=== PATIENT | female | born 1970 ===

== ENCOUNTER 2018-06-25 18:31 | Emergency (ER) | payer BC ==
--- NOTE | 2018-06-25 18:48 | UC ---
General HPI - HPI Summary HPI Summary: This is pinky Yanez documenting for attending [facility] MD Kush. Pt is a 48 y/o F c/o N/V/D onset earlier this AM. Assoc. Sx: N/V/D (10x), abd pain described as generalized and cramping. Denies: fever, melena or any blood in vomitus. Denies any cough,chest pain or shortness of breath. She said that she is the 3rd person in the house to contract this virus. Lasting about 1 to 2 days. She toof zofran 8 mg today at 3 -m but sisnce she has vomitted 17 times since morning , it did not stay in .Also has continous watery diarrhea, no blood . Took imodium . twice. Has a h/o appendectomy as a cild and ovarian cystectomy 3 years ago. She notes that she has had contact at [facility]. Family is visiting from [place] and returns on flight home tomorrow evening. - History of Current Complaint Chief Complaint: UCGI Stated Complaint: VOMITING Time Seen by Provider: 06/25/18 18:33 Hx Obtained From: Patient Onset/Duration: Sudden Onset, Lasting Hours, Still Present Timing: Constant Current Severity: Severe Pain Intensity: 8 Associated Signs & Symptoms: Positive: Abdominal Pain - cramping, Diarrhea, Nausea, Vomiting - Allergy/Home Medications Allergies/Adverse Reactions: Allergies Allergy/AdvReac Type Severity Reaction Status Date / Time Penicillins Allergy Rash Verified 06/25/18 18:36 tetracycline Allergy Anaphylatic Verified 06/25/18 18:36 Shock Home Medications: Home Medications Bismuth Subsalicylate [Pepto-Bismol] 262 mg PO 06/25/18 [History] Levothyroxine TAB* [Synthroid TAB*] 112 mcg PO 0800 06/25/18 [History Confirmed 06/25/18] Liothyronine TAB* [Cytomel TAB*] 5 mcg PO DAILY 06/25/18 [History Confirmed ] Loperamide HCl [Imodium A-D] 2 mg PO 06/25/18 [History] Ondansetron HCl [Zofran 4 MG TAB] 8 mg PO 06/25/18 [History] PMH/Surg Hx/FS Hx/Imm Hx Other Endocrine History: negative Other Cardiovascular History: Negative: CAD, HTN Other Respiratory History: negative Other GI/ History: negative Other Neurological History: Start taking . It has been prescribed to the pharmacy . Other Psychological History: Start taking . It has been prescribed to the pharmacy . - Surgical History Surgical History: Yes Surgery Procedure, Year, and Place: appy, rt oopherectomy - Family History Known Family History: Positive: Unknown - Social History Occupation: Unemployed Lives: With Family Alcohol Use: Occasionally Substance Use Type: None Smoking Status (MU): Never Smoked Tobacco Review of Systems Constitutional: Negative - fever Skin: Negative Eyes: Negative ENT: Negative Respiratory: Negative Cardiovascular: Negative Gastrointestinal: Abdominal Pain - cramping, Vomiting, Diarrhea, Nausea Genitourinary: Negative - melena, Motor: Negative Musculoskeletal: Negative Neurological: Negative Psychological: Negative Is Patient Immunocompromised?: No All Other Systems Reviewed And Are Negative: Yes Physical Exam - Summary Physical Exam Summary: Appearance: Well-Appearing, No Pain Distress, Well-Nourished Eyes: conjunctiva clear, no discharge ENT: Hearing grossly normal, no muffled/hoarse voice. Neck: Normal, Supple Respiratory/Lung Sounds: Lungs clear, Normal breath sounds, No respiratory distress, No accessory muscle use Cardiovascular: RRR, No murmur Abdomen: Generalized abdominal tenderness, Soft, no guarding, no rigidity, not distended.No organomegaly. murphys sign negative. Bowel Sounds: Present and hyper Musculoskeletal: Normal Neurological: Alert, muscle tone normal Psychiatric:Normal, age appropriate behavior Skin: Normal, Warm, Dry, Normal color Triage Information Reviewed: Yes Vital Signs: Initial Vital Signs Temp 98.4 F 06/25/18 18:33 Pulse 76 06/25/18 18:33 Resp 18 06/25/18 18:33 BP 132/76 06/25/18 18:33 Pulse Ox 99 06/25/18 18:33 Vital Signs Reviewed: Yes Course/Dx - Course Course Of Treatment: During her visit today, she was givena 1 Lt bolus of NS and 4 mg zofran IV with significant improvement in her symptoms, she had no more episodes of vomiting. We discussed the findings that viral gastroenteritis likely the cause of her symptoms and further plan. 2 tabs of Zofran dispensed to her and also prescribed to the pharmacy . Advised her to keep herself hydrated. Patient expressed understanding . - Differential Dx - Multi-Symptom Provider Diagnoses: viral gastroenteritis Discharge - Sign-Out/Discharge Documenting (check all that apply): Patient Departure - Discharge Plan Condition: Stable Disposition: HOME Prescriptions: Ondansetron HCl [Zofran] 4 mg PO Q6HR PRN 5 Days #20 tablet PRN Reason: Nausea Patient Education Materials: Gastroenteritis (ED), Acute Nausea and Vomiting ( ED) Referrals: No Primary Care Phys,NOPCP [Primary Care Provider] - 2 Days Additional Instructions: Take zofran as needed for nausea. Keep yourself hydrated. It has been prescribed to the pharmacy . Please keep yourself hydrated , soft food as tolerated by mouth. Follow up with your primary care doctor in 2-3 days Return to Urgent care / ER if symptoms get worse. - Billing Disposition and Condition Condition: STABLE Disposition: Home
[2018-06-25] MEDS ORDERED: NS 0.9% 1000 ML* 1,000 ML IV ONE (19:03)
[2018-06-25] MEDS ORDERED: Ondansetron INJ* 2 MG/ML VIAL IV ONE (19:04)
[2018-06-25] MEDS ORDERED: Ondansetron TAB* 4 MG PO ONE (20:43)
[2018-06-25] MEDS ORDERED: Ondansetron ODT TAB* 4 MG PO ONE (20:48)
== END 2018-06-25 21:00 | disposition home or self-care (01) ==
LOC: UCEAST 18:31
DX: A08.4 Viral intestinal infection, unspecified (principal); Z88.0 Allergy status to penicillin; Z88.1 Allergy status to other antibiotic agents
CPT/HCPCS: 96360; 96374; 99202; A9270-GY; G0463; J2405